=== PATIENT | male | born 1970 | race Caucasian/White ===

== ENCOUNTER → 2022-06-12 | Outpatient (CLI) | payer OTHER | LOC: M PLAIMG 11:59 | PROVIDERS: ATTEND Physical Medicine & Rehabilitation | DX: M50.321 Other cervical disc degeneration at C4-C5 level (principal); G56.03 Carpal tunnel syndrome, bilateral upper limbs; M25.421 Effusion, right elbow; R93.7 Abnormal findings on diagnostic imaging of other parts of musculoskeletal system; M25.422 Effusion, left elbow ==

== ENCOUNTER → 2022-11-09 | Outpatient (CLI) | payer OTHER | LOC: M PLAIMG 08:51 | PROVIDERS: ATTEND Physical Medicine & Rehabilitation | DX: M47.892 Other spondylosis, cervical region (principal) ==

== ENCOUNTER → 2023-01-13 | Outpatient (CLI) | payer OTHER | LOC: M PLAIMG 10:06 | PROVIDERS: ATTEND Physician Assistant | DX: M47.892 Other spondylosis, cervical region (principal); M25.78 Osteophyte, vertebrae ==